=== PATIENT | female | born 1945 | race Caucasian/White ===

== ENCOUNTER 2017-02-04 10:48 | Outpatient (CLI) | payer MEDICARE, BC ==
[2017-02-04 11:29] LABS: eGFR (African) > 60; eGFR (Non-African) 43
== END 2017-02-04 10:50 ==
LOC: LAB 10:48
PROVIDERS: ATTEND Clinical Nurse Specialist Medical-Surgical
DX: M81.0 Age-related osteoporosis without current pathological fracture (principal); E55.9 Vitamin D deficiency, unspecified; Z87.310 Personal history of (healed) osteoporosis fracture; Z82.62 Family history of osteoporosis; R26.9 Unspecified abnormalities of gait and mobility
CPT/HCPCS: 36415; 80053; 82306

== ENCOUNTER 2017-03-10 15:08 | Emergency (ER) | payer MEDICARE, BC ==
[2017-03-10] MEDS: NITROGLYCERIN 0.4 MG TAB.SUBL SL ONE ×2 (15:15→15:20)
[2017-03-10] MEDS: 0.9 % SODIUM CHLORIDE 1,000 ML IV SCH (15:30)
[2017-03-10 15:34] LABS: BASOPHILS % 0.4 (0.0-1.5); EOSINOPHILS % 3.3 % (0.0-6.8); MEAN CORPUSCULAR HEMOGLOBIN 30.2 pg (28.0-34.0); MEAN CORPUSCULAR VOLUME 91.5 fl (80.0-100.0); MONOCYTES % 4.5 % (0.0-11.0); NEUTROPHILS # 4.9 # k/uL (1.4-7.7)
[2017-03-10] MEDS: KETOROLAC TROMETHAMINE 30 MG/1ML VIAL IVP ONE (15:45)
[2017-03-10] MEDS ORDERED: 0.9 % SODIUM CHLORIDE 1,000 ML IV ONE (15:54)
[2017-03-10 15:55] LABS: eGFR (African) > 60; eGFR (Non-African) 43
--- NOTE | 2017-03-10 16:35 | ED Physician Documentation ---
Chest Pain - HISTORIAN Historian: patient - HPI Stated Complaint: chest pain Chief Complaint: Chest Pain Additional Information: midsternal, hurts to breath Onset: hours Timing: sudden onset, gradual onset, still present Duration: sudden-onset Last known Well Date: 03/10/17 Last Known Well Time: 14:00 Context: activity Severity: moderate Quality: aching Chest Pain Radiation: no radiation Chest Pain Signs/Symptoms: denies: nausea, vomiting, diaphoresis Worsened By: deep breaths Relieved By: nothing Further Comments: no - ROS CONST: none MS/LYMPH: none GI/: none EYES/ENT: none SKIN/ENDO: none NEURO/PSYCH: none - PAST HX NC risk factors: hyperlipidemia, other (copd, depression) DVT/PE Risk Factors: none TAD/AAA risk factors: none Neuro deficit: none GI disease: none Lung disease: COPD Surgeries/Procedures: none Immunizations: referred to PCP Allergies/Adverse Reactions: Allergies Allergy/AdvReac Type Severity Reaction Status Date / Time Penicillins Allergy Intermediate Hives Verified 03/10/17 15:40 Home Medications: Ambulatory Orders Medication Instructions Recorded Alendronate Sodium [Fosamax] 5 mg PO 03/10/17 Atorvastatin Calcium [Atorvastatin 03/10/17 Calcium] Escitalopram Oxalate [Escitalopram 03/10/17 Oxalate] Fluticasone Furoate [Veramyst] 03/10/17 Fluticasone/Salmeterol [Advair 1 each IH 03/10/17 100-50 Diskus] Gabapentin [Gabapentin] 03/10/17 Glatiramer Acetate [Copaxone] 03/10/17 Levothyroxine Sodium [Synthroid] 125 mcg 03/10/17 Modafinil [Modafinil] 03/10/17 Mometasone Furoate [Nasonex] 17 gm NS 03/10/17 Nasal Exhalation Resistance Dv 1 each NS 03/10/17 [Provent Sr] Oxcarbazepine [Trileptal] 03/10/17 Primidone [Mysoline] 03/10/17 Solifenacin Succinate [Vesicare] 03/10/17 Trazodone HCl [Trazodone HCl] 03/10/17 - SOCIAL HX Smoking History: non-smoker Alcohol Use: rarely Drug Use: none - FAMILY HX Family HX: none - VITAL SIGNS Vital Signs: Vital Signs Temp Pulse Resp BP Pulse Ox 98.1 F 66 18 188/56 99 03/10/17 15:08 03/10/17 15:08 03/10/17 15:08 03/10/17 15:08 03/10/17 15:08 - REVIEWED ASSESSMENTS Nursing Assessment Reviewed: Yes Vitals Reviewed: Yes Progress - Results/Orders Results/Orders: cardiac w/u ordered - Progress Progress: 2 ntg helped some, 30 mg toradol ivp helped significantly Critical Care Note - Critical Care Note Total Time (mins): 0 ED Results Lab/Radiology - Lab Results Lab Results: Lab Results 03/10/17 03/10/17 03/10/17 15:30 15:30 15:30 WBC RBC Hgb Hct MCV MCH MCHC RDW Plt Count Neut % (Auto) Lymph % (Auto) Bullock % (Auto) Eos % (Auto) Baso % (Auto) Neut # Lymph # Bullock # Eos # Baso # Reactive Lymphs % Reactive Lymphs # PT 10.4 Seconds Seconds (9.7-11.5) INR 1.0 (0.9-1.1) APTT 23.9 Seconds L Seconds (24.5-32.8) Sodium 136 mmol/L mmol/L (136-145) Potassium 3.8 mmol/L mmol/L (3.5-5.0) Chloride 105 mmol/L mmol/L (98-110) Carbon Dioxide 37 mmol/L H mmol/L (20-32) BUN 22 mg/dL mg/dL (10-26) Creatinine 1.3 mg/dL mg/dL (0.4-1.5) Estimated Creat Clear 52 Est GFR ( Amer) > 60 (60 - ) Est GFR (Non-Af Amer) 43 L (60 - ) Glucose 101 mg/dL H mg/dL (70-99) Calcium 9.5 mg/dL mg/dL (8.5-10.5) Total Bilirubin 0.3 mg/dL mg/dL (0.2-1.2) AST 25 U/L U/L (0-41) ALT 18 U/L U/L (0-45) Alkaline Phosphatase 107 U/L U/L (46-116) Troponin I < 0.03 ng/mL L ng/mL (0.03-0.06) NT-Pro-B Natriuret Pep 818.0 pg/mL H pg/mL (15.0-125.0) Total Protein 7.5 g/dL g/dL (6.0-8.5) Albumin 4.6 g/dL g/dL (3.0-5.5) Amylase 144 U/L H U/L (20-104) 03/10/17 15:30 WBC 7.10 K/ul K/ul (4.00-12.00) RBC 3.78 M/ul L M/ul (3.90-5.20) Hgb 11.4 g/dL L g/dL (12.0-16.0) Hct 34.6 % % (34.5-46.5) MCV 91.5 fl fl (80.0-100.0) MCH 30.2 pg pg (28.0-34.0) MCHC 32.9 g/dL g/dL (30.0-36.0) RDW 13.1 % % (11.3-14.3) Plt Count 307 K/mm3 K/mm3 (130-400) Neut % (Auto) 68.8 % % (39.0-79.0) Lymph % (Auto) 22.2 % % (16.0-50.0) Bullock % (Auto) 4.5 % % (0.0-11.0) Eos % (Auto) 3.3 % % (0.0-6.8) Baso % (Auto) 0.4 (0.0-1.5) Neut # 4.9 # k/uL # k/uL (1.4-7.7) Lymph # 1.6 # k/uL # k/uL (0.6-4.0) Bullock # 0.3 # k/uL # k/uL (0.0-0.9) Eos # 0.2 # k/uL # k/uL (0.0-0.6) Baso # 0.0 # k/uL # k/uL (0.0-0.5) Reactive Lymphs % 0.8 % % (0.0-5.0) Reactive Lymphs # 0.1 # k/uL # k/uL (0.0-0.8) PT INR APTT Sodium Potassium Chloride Carbon Dioxide BUN Creatinine Estimated Creat Clear Est GFR ( Amer) Est GFR (Non-Af Amer) Glucose Calcium Total Bilirubin AST ALT Alkaline Phosphatase Troponin I NT-Pro-B Natriuret Pep Total Protein Albumin Amylase - Radiology Radiology Impressions: cxr neg - Orders Orders: ED Orders Category Date Time Status Continuous Pulse Oximetry Q1H Care 03/10/17 15:[address] Saline Lock/IV Now Care 03/10/17 15:20 Active Telemetry NOW Care 03/10/17 15:20 Active CHEST 1 VIEW [RAD] Routine Exams 03/10/17 Taken AMYLASE Routine Lab 03/10/17 15:30 Completed CBC/PLATELET/DIFF Routine Lab 03/10/17 15:30 Completed CMP Routine Lab 03/10/17 15:30 Completed DRUG SCREEN URINE MEDICAL ONLY Routine Lab 03/10/17 15:30 Received NT-proBNP Routine Lab 03/10/17 15:30 Completed PT-INR Routine Lab 03/10/17 15:30 Completed PTT Routine Lab 03/10/17 15:30 Completed TROPONIN I (cTnI) Routine Lab 03/10/17 15:30 Completed URINALYSIS Routine Lab 03/10/17 15:20 Ordered 0.9 % Sodium Chloride [Normal Saline] 1,000 ml Med 03/10/17 15:30 Ordered IV .Q1H Ketorolac Tromethamine [Toradol] Med 03/10/17 15:20 Discontinued 30 mg IVP NOW ONE Nitroglycerin [Nitroquick] Med 03/10/17 15:22 Discontinued 0.4 mg SL NOW ONE Nitroglycerin [Nitroquick] Med 03/10/17 15:32 Discontinued 0.4 mg SL NOW ONE EKG WITH COMPARISON Routine Ther 03/10/17 Ordered Chest Pain Physical Exam - EXAM General Appearance: alert, moderate distress EENT: eye inspection normal, ENT inspection normal, pharynx normal, no signs of dehydration, KYLAH, no nystagmus, TM's nml Neck: nml inspection, no carotid bruit Respiratory: no resp. distress, chest non-tender, nml breath sounds, resp.distress CVS: reg. rate & rhythm, no murmur, no gallop, no friction rub, pulses equal Abdomen: soft, tenderness (erpigastrium) Skin: warm/dry, normal color Extremities: non-tender, normal range of motion, no evidence of injury, no edema Neuro: oriented X3, CN's nml as tested, motor nml, sensation nml, mood/affect nml, cognition normal Discharge Clincal Impression: Pancreatitis Qualifiers: Chronicity: acute Pancreatitis type: unspecified pancreatitis type Acute pancreatitis complication: unspecified Qualified Code(s): K85.90 - Acute pancreatitis without necrosis or infection, unspecified Referrals: Kartik Finney MD [Primary Care Provider] - 2 Days Home Medications: Ambulatory Orders Alendronate Sodium [Fosamax] 5 mg PO 03/10/17 Atorvastatin Calcium [Atorvastatin Calcium] 03/10/17 Escitalopram Oxalate [Escitalopram Oxalate] 03/10/17 Fluticasone Furoate [Veramyst] 03/10/17 Fluticasone/Salmeterol [Advair 100-50 Diskus] 1 each IH 03/10/17 Gabapentin [Gabapentin] 03/10/17 Glatiramer Acetate [Copaxone] 03/10/17 Levothyroxine Sodium [Synthroid] 125 mcg 03/10/17 Modafinil [Modafinil] 03/10/17 Mometasone Furoate [Nasonex] 17 gm NS 03/10/17 Nasal Exhalation Resistance Dv [Provent Sr] 1 each NS 03/10/17 Oxcarbazepine [Trileptal] 03/10/17 Primidone [Mysoline] 03/10/17 Solifenacin Succinate [Vesicare] 03/10/17 Trazodone HCl [Trazodone HCl] 03/10/17 Comments: discharged with script for Bentyl, told to get an upper abd. US or abd. ct Condition: Stable Disposition: 01 HOME, SELF-CARE Decision to Admit: NO Decision Time: 16:30
[2017-03-10 23:11] VITALS: BP 159/47
--- NOTE | 2017-03-10 23:46 | Diagnostic Imaging Report ---
REYNA OHFFMAN [address] [facility].[address] [address] Report Submission Date: Mar 10, 2017 3:50:54 PM CDT Patient Study Name: BETSY OGDEN Date: Mar 10, 2017 3:32:07 PM CDT Modality Type: CR Gender: F Description: CHEST : 43 Institution: Physician: REYNA HOFFMAN A single frontal view of the chest History: Chest pain Findings: No comparison studies Cardiac size is within normal limits. Patient is post sternotomy. Aortic calcification is present Hyperexpanded lung stein are seen. There is minimal bibasilar atelectasis. No pleural effusion or pneumothorax. Cervical spine fusion hardware is noted Impression: Bibasilar subsegmental atelectasis. No focal consolidation or pleural effusion. Electronically signed on Mar 10, 2017 3:50:54 PM CDT by: Brunilda RODRIGUES
== END 2017-03-10 16:50 | disposition home or self-care (01) ==
LOC: ED 15:08
DX: K85.90 Acute pancreatitis without necrosis or infection, unspecified (principal)
CPT/HCPCS: 71010; 80053; 82150; 83880; 84484; 85025; 85610; 85730; G0481; J1885; J7030; 36415; 80377; 96361; 96374; 99283

== ENCOUNTER 2017-04-19 09:45 | Emergency (ER) | payer MEDICARE, BC ==
[2017-04-19] MEDS ORDERED: KETOROLAC TROMETHAMINE 60 MG/2 ML VIAL IM ONE (10:09)
--- NOTE | 2017-04-19 10:15 | ED Physician Documentation ---
General Adult - HISTORIAN Historian: patient - HPI Chief Complaint: Lower Extremity Problem Onset: hours Timing: still present Further Comments: yes - ROS CONST: no problems. denies: fever - PAST HX Past History: COPD, other (MS, s/p CVA, my gravis) Other History: other (hyperlipidemia, depression) Surgeries/Procedures: hysterectomy, other (s/p bilat ORIF hip fracture, s/p pelvic fracture) Allergies/Adverse Reactions: Allergies Allergy/AdvReac Type Severity Reaction Status Date / Time Penicillins Allergy Intermediate Hives Verified 04/19/17 09:54 Home Medications: Ambulatory Orders Medication Instructions Recorded Alendronate Sodium [Fosamax] 5 mg PO DAILY 03/10/17 Atorvastatin Calcium [Atorvastatin 40 mg PO DAILY 03/10/17 Calcium] Escitalopram Oxalate [Escitalopram 10 mg PO [id number] 03/10/17 Oxalate] Gabapentin [Gabapentin] 100 mg PO DAILY 03/10/17 Glatiramer Acetate [Copaxone] 40 mg IM [id number] 03/10/17 Levothyroxine Sodium [Synthroid] 125 mcg PO DAILY 03/10/17 Modafinil [Modafinil] 200 mg PO DAILY 03/10/17 Mometasone Furoate [Nasonex] 17 gm NS BID 03/10/17 Nasal Exhalation Resistance Dv 1 each NS BID 03/10/17 [Provent Sr] Oxcarbazepine [Trileptal] 300 mg PO BID 03/10/17 Primidone [Mysoline] 250 mg PO DAILY 03/10/17 Solifenacin Succinate [Vesicare] 5 mg PO DAILY 03/10/17 Trazodone HCl [Trazodone HCl] 25 mg PO HS 03/10/17 Albuterol Sulfate [Proair HFA] 8.5 gm IN QID 04/19/17 Denosumab [Prolia] 60 mg IM WEEK 04/19/17 Fluticasone/Salmeterol [Advair 1 each IN DAILY 04/19/17 250-50 Diskus] Memantine HCl [Namenda XR] 7 mg PO DAILY 04/19/17 - SOCIAL HX Smoking History: non-smoker Alcohol Use: none Drug Use: none - FAMILY HX Family History: No - VITAL SIGNS Vital Signs: Vital Signs Temp Pulse Resp BP Pulse Ox 159/47 03/10/17 16:50 - REVIEWED ASSESSMENTS Nursing Assessment Reviewed: Yes Vitals Reviewed: Yes ED Results Lab/Radiology - Radiology Radiology Impressions: Report Submission Date: Apr 19, 2017 11:29:02 AM CDT Patient Study Name: BETSY OGDEN Date: Apr 19, 2017 10:43:20 AM CDT Modality Type: CR Gender: F Description: SPINE : 43 Institution: [facility] Physician: ROSANA XIAO - ER Examination: Plain film spine History: Fall Comparison exam: None provided Findings: 2 views of the lumbar spine demonstrate curvature to the left at the thoracolumbar junction. Disc space narrowing. Lateral and anterior osteophyte formation. No compression deformity. Atherosclerotic disease involving the aortic and iliac vessels. Impression: Curvature and degenerative changes. No compression deformity. Electronically signed on Apr 19, 2017 11:29:02 AM CDT by: Maximiliano Atkinson Examination: Foot plain film History: Fall. Findings: 3 views of the foot demonstrates osteopenia. No evidence for fracture line. Mild hallux valgus deformity 1st digit. No soft tissue irregularity. Impression: Osteopenia. Mild degenerative changes. No evidence for acute fracture. Electronically signed on Apr 19, 2017 11:38:40 AM CDT by: Maximiliano Atkinson General Adult Physical Exam - PHYSICAL EXAM GENERAL APPEARANCE: no distress EENT: ENT inspection normal NECK: normal inspection, supple. No: lymphadenopathy RESPIRATORY: no resp distress, chest non-tender, breath sounds normal. No: wheezes, rales, rhonchi CVS: reg rate & rhythm, heart sounds normal, equal pulses, no murmur, no gallop ABDOMEN: soft, no organomegaly BACK: no CVA tenderness, other (tenderness to palpation over the lower right lumbar area, no ecchymosis) SKIN: warm/dry EXTREMITIES: other (tenderness over right foot, ecchymosis) NEURO: oriented X3, CN's nml as tested, sensation nml, mood/affect nml, cognition normal Discharge Clincal Impression: Contusion of foot, right Qualifiers: Encounter type: initial encounter Qualified Code(s): S90.31XA - Contusion of right foot, initial encounter Contusion, back Qualifiers: Encounter type: initial encounter Laterality: right Qualified Code(s): S20.221A - Contusion of right back wall of thorax, initial encounter Referrals: Reg,Kartik, MD [Primary Care Provider] - 2 Days Additional Instructions: Try applying a cool/warm compress tot he back area. Take Aleve 220mg tablets, 1- 2 tablets twice a day with food to help with the pain. Home Medications: Ambulatory Orders Alendronate Sodium [Fosamax] 5 mg PO DAILY 03/10/17 Atorvastatin Calcium [Atorvastatin Calcium] 40 mg PO DAILY 03/10/17 Escitalopram Oxalate [Escitalopram Oxalate] 10 mg PO [id number] 03/10/17 Gabapentin [Gabapentin] 100 mg PO DAILY 03/10/17 Glatiramer Acetate [Copaxone] 40 mg IM [id number] 03/10/17 Levothyroxine Sodium [Synthroid] 125 mcg PO DAILY 03/10/17 Modafinil [Modafinil] 200 mg PO DAILY 03/10/17 Mometasone Furoate [Nasonex] 17 gm NS BID 03/10/17 Nasal Exhalation Resistance Dv [Provent Sr] 1 each NS BID 03/10/17 Oxcarbazepine [Trileptal] 300 mg PO BID 03/10/17 Primidone [Mysoline] 250 mg PO DAILY 03/10/17 Solifenacin Succinate [Vesicare] 5 mg PO DAILY 03/10/17 Trazodone HCl [Trazodone HCl] 25 mg PO HS 03/10/17 Albuterol Sulfate [Proair HFA] 8.5 gm IN QID 04/19/17 Denosumab [Prolia] 60 mg IM WEEK 04/19/17 Fluticasone/Salmeterol [Advair 250-50 Diskus] 1 each IN DAILY 04/19/17 Memantine HCl [Namenda XR] 7 mg PO DAILY 04/19/17 Condition: Stable Disposition: 01 HOME, SELF-CARE Decision to Admit: NO Date of Decison to Admit: 04/19/17 Decision Time: 11:38
[2017-04-19 11:57] VITALS: BP 195/61
--- NOTE | 2017-04-19 14:50 | Diagnostic Imaging Report ---
ROSANA XIAO [facility] [address] [facility] [address] [address] Report Submission Date: Apr 19, 2017 11:29:02 AM CDT Patient Study Name: BETSY OGDEN Date: Apr 19, 2017 10:43:20 AM CDT Modality Type: CR Gender: F Description: SPINE : 43 Institution: [facility] Physician: ROSANA XIAO Examination: Plain film spine History: Fall Comparison exam: None provided Findings: 2 views of the lumbar spine demonstrate curvature to the left at the thoracolumbar junction. Disc space narrowing. Lateral and anterior osteophyte formation. No compression deformity. Atherosclerotic disease involving the aortic and iliac vessels. Impression: Curvature and degenerative changes. No compression deformity. Electronically signed on Apr 19, 2017 11:29:02 AM CDT by: Maximiliano RODRIGUES
--- NOTE | 2017-04-19 14:50 | Diagnostic Imaging Report ---
ROSANA XIAO [facility] [address] [facility].[address] [address] Report Submission Date: Apr 19, 2017 11:38:40 AM CDT Patient Study Name: BETSY OGDEN Date: Apr 19, 2017 10:38:36 AM CDT Modality Type: CR Gender: F Description: LOWER EXTREMITY : 43 Institution: [facility] Physician: ROSANA XIAO Examination: Foot plain film History: Fall. Findings: 3 views of the foot demonstrates osteopenia. No evidence for fracture line. Mild hallux valgus deformity 1st digit. No soft tissue irregularity. Impression: Osteopenia. Mild degenerative changes. No evidence for acute fracture. Electronically signed on Apr 19, 2017 11:38:40 AM CDT by: Maximiliano RODRIGUES
== END 2017-04-19 11:55 | disposition home or self-care (01) ==
LOC: ED 09:45
DX: S90.31XA Contusion of right foot, initial encounter (principal); S20.221A Contusion of right back wall of thorax, initial encounter; W19.XXXA Unspecified fall, initial encounter; Y93.9 Activity, unspecified; Y99.9 Unspecified external cause status
CPT/HCPCS: 72100; 73630; J1885

== ENCOUNTER 2018-02-20 12:12 | Outpatient (CLI) | payer MEDICARE, BC | END 2018-02-20 12:13 | LOC: LAB 12:12 | PROVIDERS: ATTEND Clinical Nurse Specialist Medical-Surgical | DX: M81.0 Age-related osteoporosis without current pathological fracture (principal); E55.9 Vitamin D deficiency, unspecified; Z87.310 Personal history of (healed) osteoporosis fracture; Z82.62 Family history of osteoporosis; R26.9 Unspecified abnormalities of gait and mobility | CPT/HCPCS: 36415; 82306; 82310 ==

== ENCOUNTER 2018-06-12 09:17 | Outpatient (CLI) | payer MEDICARE, BC ==
[2018-06-12 10:43] LABS: BASOPHILS % 0.7 (0.0-1.5); EOSINOPHILS % 4.3 % (0.0-6.8); MEAN CORPUSCULAR HEMOGLOBIN 31.4 pg (28.0-34.0); MEAN CORPUSCULAR VOLUME 95.1 fl (80.0-100.0); MONOCYTES % 4.7 % (0.0-11.0); NEUTROPHILS # 4.6 # k/uL (1.4-7.7)
[2018-06-12 10:50] LABS: eGFR (African) > 60; eGFR (Non-African) > 60
[2018-06-12 11:49] LABS: APPEARANCE,URINE SLIGHTLY CLOUDY (CLEAR); COLOR,URINE YELLOW (YELLOW)
[2018-06-12 11:50] LABS: OCCULT BLOOD,URINE NEGATIVE (NEGATIVE); UROBILINOGEN URINE 0.2 Eu (0.2-1.0)
== END 2018-06-12 09:18 ==
LOC: LAB 09:17
PROVIDERS: ATTEND Internal Medicine
DX: M81.0 Age-related osteoporosis without current pathological fracture (principal); E55.9 Vitamin D deficiency, unspecified; Z87.310 Personal history of (healed) osteoporosis fracture; Z82.62 Family history of osteoporosis; R26.9 Unspecified abnormalities of gait and mobility; E78.5 Hyperlipidemia, unspecified; R53.83 Other fatigue; E03.9 Hypothyroidism, unspecified; N39.0 Urinary tract infection, site not specified; G70.00 Myasthenia gravis without (acute) exacerbation
CPT/HCPCS: 36415; 80053; 80061; 81002; 82150; 82306; 83690; 84439; 84443; 85025

== ENCOUNTER 2019-02-22 09:51 | Outpatient (CLI) | payer MEDICARE, BC ==
[2019-02-22 10:41] LABS: eGFR (Non-African) 44
== END 2019-02-22 13:06 ==
LOC: LAB 09:51
PROVIDERS: ATTEND Internal Medicine
DX: G35 Multiple sclerosis (principal); M81.0 Age-related osteoporosis without current pathological fracture; E55.9 Vitamin D deficiency, unspecified; R26.9 Unspecified abnormalities of gait and mobility; Z87.310 Personal history of (healed) osteoporosis fracture; Z82.62 Family history of osteoporosis
CPT/HCPCS: 36415; 80053; 82306

== ENCOUNTER 2019-05-21 11:22 | Outpatient (CLI) | payer MEDICARE, BC ==
[2019-05-21 11:58] LABS: APPEARANCE,URINE CLOUDY (CLEAR); COLOR,URINE YELLOW (YELLOW); OCCULT BLOOD,URINE NEGATIVE (NEGATIVE); PH URINE 5.5 (5.0 - 8.0); UROBILINOGEN URINE 0.2 Eu (0.2-1.0)
--- NOTE | 2019-05-21 16:57 | Diagnostic Imaging Report ---
DODIE WEAVER [facility] [address] [facility] [address] [place] [address]. [address] Report Submission Date: May 21, 2019 2:37:53 PM CDT Patient Study Name: BETSY OGDEN Date: May 21, 2019 11:39:39 AM CDT Modality Type: DX Gender: F Description: CHEST 2VIEW : 43 Institution: [facility] Physician: DODIE WEAVER Exam: AP chest. History: Cough. No previous studies are available for comparison. Lung stein are well aerated. Heart size is normal with atherosclerotic plaques seen in the aorta. Fusion of the lower cervical spine is noted. Impression: No rachna consolidation or effusion Electronically signed on May 21, 2019 2:37:53 PM CDT by: Raul RODRIGUES
--- NOTE | 2019-05-21 16:57 | Diagnostic Imaging Report ---
DODIE WEAVER [facility] [address] [facility] [address] [address] Report Submission Date: May 21, 2019 2:37:13 PM CDT Patient Study Name: BETSY OGDEN Date: May 21, 2019 11:39:39 AM CDT Modality Type: DX Gender: F Description: ABDOMEN 1VIEW : 43 Institution: [facility] Physician: DODIE WEAVER Exam: Single-view abdomen. History: Constipation. No previous studies are available for comparison. Scattered loops of bowel gas in both large and small intestine is noted with a mild amount of retained fecal material seen in the colon. No organomegaly is seen. No renal or biliary calcifications are noted. Impression: Nonspecific bowel gas pattern Electronically signed on May 21, 2019 2:37:13 PM CDT by: Raul RODRIGUES
== END 2019-05-21 11:24 ==
LOC: RAD 11:22
PROVIDERS: ATTEND Internal Medicine
DX: K59.00 Constipation, unspecified (principal); R09.89 Other specified symptoms and signs involving the circulatory and respiratory systems; R05 Cough; R30.0 Dysuria
CPT/HCPCS: 71046; 74018; 81002; 87086